=== PATIENT | male | born 1985 | race Caucasian/White ===

== ENCOUNTER 2016-06-03 01:34 | Emergency (ER) | payer BC ==
[~2016-06-03] VITALS: Ht 175.3 cm; Wt 73.1 kg
[2016-06-03 01:39] VITALS: TEMP 36.8; Ht 175.3 cm; Wt 73.1 kg
[2016-06-03] MEDS ORDERED: PROPARACAINE HCL 0.5% OP SOLN 15 ML BTL OP ONE (02:00)
[2016-06-03 02:30] VITALS: BP 121/76; PULSE 61; O2SAT 97
[2016-06-03] MEDS ORDERED: CIPROFLOXACIN HCL 0.3% OP SOLN 2.5 ML BTL OP ONE (02:30)
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
== END 2016-06-03 02:30 | disposition home or self-care (01) ==
LOC: C.EDB 01:36 → C.EDA 02:30
DX: S05.02XA Injury of conjunctiva and corneal abrasion without foreign body, left eye, initial encounter (principal); W50.0XXA Accidental hit or strike by another person, initial encounter